=== PATIENT | female | born 1975 | race African-American/Black ===

== ENCOUNTER 2017-04-08 16:29 | Emergency (ER) | payer OTHER ==
[~2017-04-08] VITALS: Ht 162.6 cm; Wt 105.9 kg
[2017-04-08 16:32] VITALS: Ht 162.6 cm; Wt 105.9 kg
[2017-04-08] MEDS ORDERED: ALBUTEROL 0.083% (NEB) 2.5 MG/3 ML AMP HHN STA (17:41)
--- NOTE | 2017-04-08 18:36 | RADRPT ---
PROCEDURE: XR, Chest. CLINICAL INDICATION: Cough. TECHNIQUE: AP chest COMPARISON: None available. FINDINGS: There is no acute infiltrate in the lungs. No pleural effusion. The heart is not enlarged. IMPRESSION: 1. Unremarkable chest x-ray. RPTAT: GG .Mason Sosa MD, MD Date Time Electronically viewed and signed by .Mason Sosa MD, MD on 04/08/2017 18:35 .Y/
[2017-04-08] MEDS ORDERED: ALBU8.5H3 INH (19:06)
[2017-04-08] MEDS ORDERED: PRED20TA PO (19:06)
--- NOTE | 2017-04-08 19:13 | ERD ---
ER Documentation Chief Complaint Chief Complaint PRODUCTIVE COUGH WITH DARK GREENISH COLORED SPUTUM X 5 DAYS HPI 42-year-old female complaining of productive cough with darkish sputum 5 days. Patient describes a sore throat. Describes cough is productive. Patient has history of asthma. She has been taking NyQuil with no alleviation of symptoms. Patient denies any cardiac abnormalities or leg swelling. Patient denies any other medical problems. Allergies to medication: Penicillin. ROS All systems reviewed and are negative except as per history of present illness. Medications Home Meds Active Scripts Prednisone* (Prednisone*) 20 Mg Tab, 40 MG PO DAILY for 4 Days, TAB Prov:MARY JO LUNA PA-C 04/08/17 Albuterol Sulfate* (Proair HFA*) 8.5 Gm Hfa.aer.ad, 2 PUFF INH Q4, #1 INHALER Prov:MARY JO LUNA PA-C 04/08/17 PMhx/Soc Medical and Surgical Hx: pt denies Medical Hx, pt denies Surgical Hx Hx Alcohol Use: No Hx Substance Use: No Hx Tobacco Use: No Smoking Status: Current every day smoker Physical Exam Vitals Vital Signs Date Time Temp Pulse Resp B/P Pulse Ox O2 Delivery O2 Flow Rate FiO2 04/08/17 18:18 80 18 99 21 04/08/17 16:32 98.7 80 18 169/86 99 Physical Exam GENERAL: The patient is well-appearing, well-nourished, in no acute distress HEENT: Atraumatic. Conjunctivae are pink. Pupils equal, round, and reactive to light. There is no scleral icterus. Tympanic membranes clear bilaterally. Oropharynx clear. No nystagmus or photophobia. NECK: C-spine is soft and supple. There is no meningismus. There is no cervical lymphadenopathy. CHEST: Clear to auscultation bilaterally. There are no rales, wheezes or rhonchi. HEART: Regular rate and rhythm. No murmurs, clicks, rubs or gallops. No S3 or S4. Results 24 hrs Current Medications Medications (Trade) Dose Ordered Sig/Josiah Route PRN Reason Start Time Stop Time Status Last Admin Dose Admin Albuterol (Proventil 0.083% (Neb)) 2.5 mg ONCE STAT [facility]N 04/08/17 17:41 04/08/17 17:43 DC 04/08/17 18:16 Procedures/MDM DIAGNOSTIC IMAGING REPORT Patient: CARLYLE VITAL : 1975 Age: 42 Sex: F MR #: [id number] DOS: 04/08/17 1741 Ordering MD: MAYURI LUNA PA-C Location: [facility] Room/Bed: PROCEDURE: XR, Chest. CLINICAL INDICATION: Cough. TECHNIQUE: AP chest COMPARISON: None available. FINDINGS: There is no acute infiltrate in the lungs. No pleural effusion. The heart is not enlarged. IMPRESSION: 1. Unremarkable chest x-ray. ER Course: Albuterol breathing treatment given in ED. DM: 42-year-old female complaining of productive-like cough. Patient's chest x- ray is within normal limits. There is no leg swelling noted on exam. I have low suspicion for cardiac emergency or CHF exacerbation. I did not feel that blood work was indicated. I have low suspicion for pneumonia or PE. Patient's vital signs are stable and exam is non-concerning. Patient did not have wheezing on auscultation I have low suspicion for respiratory distress or hypoxia. Patient is discharged with strict ER precautions and told to follow- up with primary care within 1-2 days for close evaluation. Patient is discharged with medication for symptomatic relief. Departure Diagnosis: Primary Impression: Cough Condition: Stable Patient Instructions: Cough, Chronic, Uncertain Cause, (Adult) Referrals: [facility] (PCP) Additional Instructions: FOLLOW UP WITH YOUR PRIMARY CARE PHYSICIAN TOMORROW.Return to this facility if you are not improving as expected. MARY JO LUNA PA-C Apr 08, 2017 19:13
[2017-04-08 19:30] VITALS: BP 122/72; PULSE 82; RESP 20
== END 2017-04-08 19:30 | disposition home or self-care (01) ==
LOC: E/R 16:29
DX: R05 Cough (principal); F17.210 Nicotine dependence, cigarettes, uncomplicated; J45.909 Unspecified asthma, uncomplicated
CPT/HCPCS: 71010; 94664; Z7502; Z7610